=== PATIENT | female | born 1985 | race Caucasian/White ===

== ENCOUNTER → 2020-10-17 | Day surgery (SDC) | payer OTHER ==
[~2020-10-17] MED LIST: ASCORBIC ACID500 MG PO; MOTRIN600 MG PO; PERCOCET 5-3251 EACH PO; SYNTHROID150 MCG PO; VENTOLIN HFA IN18 GM INH
[2020-10-17 09:45] LABS: HCG (URINE) SCREEN NEGATIVE (NEGATIVE)
[2020-10-17 10:13] LABS: HCT 39.4 % (37.0-47.0); HGB 13.1 g/dl (12.5-16.0); MCH 31.2 pg (25.0-31.0); MCHC 33.2 g/dL (32.0-36.0); MCV 93.8 fL (78.0-100.0); RBC 4.2 M/uL (4.20-5.40); RDW 13.9 % (11.5-14.0); WBC 9.4 K/uL (4.0-10.5)
== END | disposition home or self-care (01) ==
LOC: FAS 08:55
PROVIDERS: Obstetrics & Gynecology
DX: N73.6 Female pelvic peritoneal adhesions (postinfective) (principal); N80.9 Endometriosis, unspecified; N92.6 Irregular menstruation, unspecified; N94.6 Dysmenorrhea, unspecified; J43.9 Emphysema, unspecified; F41.9 Anxiety disorder, unspecified; F32.9 Major depressive disorder, single episode, unspecified; N94.10 Unspecified dyspareunia; E78.5 Hyperlipidemia, unspecified; E03.9 Hypothyroidism, unspecified; E07.9 Disorder of thyroid, unspecified; E04.9 Nontoxic goiter, unspecified; N39.0 Urinary tract infection, site not specified; N94.2 Vaginismus; E55.9 Vitamin D deficiency, unspecified; N76.0 Acute vaginitis; F17.210 Nicotine dependence, cigarettes, uncomplicated; Z91.040 Latex allergy status; Z87.440 Personal history of urinary (tract) infections
CPT/HCPCS: 36415; 84703; 86850; 86900; 86901; 93005; J1170; J2250; J2704; J2710; J3010; J7120

== ENCOUNTER 2020-10-23 13:42 | Emergency (ER) | payer OTHER ==
[2020-10-23 15:38] LABS: BILIRUBIN NEGATIVE (NEGATIVE); BLOOD TRACE-INTACT Ery/uL (NEGATIVE); CLARITY CLEAR (CLEAR); COLOR YELLOW (YELLOW); GLUCOSE (U) NORMAL (NORMAL); LEUKOCYTES NEGATIVE Leu/uL (NEGATIVE); NITRITE NEGATIVE (NEGATIVE); PROTEIN NEGATIVE (NEGATIVE); UROBILINOGEN 0.2 mg/dL (0.2-1.0); pH 7.5 (5.0-9.0)
[2020-10-23 15:41] LABS: BUN/CREAT RATIO (CALC) 14.8 RATIO; CREATININE 0.81 mg/dL (0.51-0.95); POTASSIUM 3.8 mmol/L (3.5-5.1)
[2020-10-23 15:48] LABS: LACTIC ACID 0.5 mmol/L (0.4-1.9)
[2020-10-23 15:53] LABS: BACTERIA TRACE; URINARY RBC RARE
[2020-10-23 16:19] LABS: BASOPHIL 0.3 % (0-2); EOSINOPHIL 0.7 % (0-5); HCT 39.4 % (37.0-47.0); HGB 13.1 g/dl (12.5-16.0); LYMPHOCYTE 21.3 % (15-48); MCHC 33.2 g/dL (32.0-36.0); MCV 93.1 fL (78.0-100.0); MONOCYTE 4.6 % (0-12); NEUTROPHIL 72.9 % (41-80); NRBC 0; PLT 306 K/uL (150-400); RBC 4.23 M/uL (4.20-5.40); RDW 13.6 % (11.5-14.0); WBC 8.9 K/uL (4.0-10.5)
== END 2020-10-23 17:10 | disposition home or self-care (01) ==
LOC: FER 13:42
PROVIDERS: Emergency Medicine
DX: G89.18 Other acute postprocedural pain (principal); L76.32 Postprocedural hematoma of skin and subcutaneous tissue following other procedure; F17.210 Nicotine dependence, cigarettes, uncomplicated; Z98.890 Other specified postprocedural states; Z91.040 Latex allergy status; Y83.8 Other surgical procedures as the cause of abnormal reaction of the patient, or of later complication, without mention of misadventure at the time of the procedure
CPT/HCPCS: 36415; 80048; 81001; 83605; 85025; 99284; J1885